=== PATIENT | male | born 1965 | race Caucasian/White ===

== ENCOUNTER 2018-05-17 11:27 | Emergency (ER) | payer OTHER ==
[2018-05-17 13:34] VITALS: BP 119/76
[2018-05-17] MEDS ORDERED: Penicillin G Benzathine 2.4MU* 2,400,000 UNITS/4 ML SYR IM ONE (13:59)
--- NOTE | 2018-05-17 14:08 | UC ---
Dental HPI - HPI Summary HPI Summary: recent tooth extraction 2 days ago, woke up yesterday with a small amount od swelling. today the entire right cheek is swollen and painful - History of Current Complaint Chief Complaint: UCDentalProblem Stated Complaint: DENTAL COMPLAINT (TOOTH PULLED RECENTLY) Time Seen by Provider: 05/17/18 13:50 Hx Obtained From: Patient Onset/Duration: Sudden Onset, Lasting Days Severity: Severe Pain Intensity: 8 Related History: Previous Dental Care on Same Tooth, Swelling - Allergies/Home Medications Allergies/Adverse Reactions: Allergies Allergy/AdvReac Type Severity Reaction Status Date / Time MS Bee Venom [Bee Venom] Allergy Swelling Verified 05/17/18 13:25 MS Aspirin [Aspirin] AdvReac GI Upset Verified 05/17/18 13:25 MS Ibuprofen [Ibuprofen] AdvReac GI Upset Verified 05/17/18 13:25 MUSHROOM Allergy GI AND Uncoded 05/17/18 13:25 VOMITING Home Medications: Home Medications [place]- Med To Replace Inv DAILY 05/17/18 [History] PMH/Surg Hx/FS Hx/Imm Hx Previously Healthy: Yes - Surgical History Surgical History: Yes Surgery Procedure, Year, and Place: R KNEE SX X 4, LAST BEING A PARTIAL REPLACEMENT. T&A, RT rotator cuff repair and bicep tendon reattachement. R FOOT SX--05/2013. RIGHT SHOULDER REPEAT. RIGHT ELBOW. RIGHT CARPAL TUNNEL - Family History Known Family History: Positive: Hypertension, Diabetes - Social History Alcohol Use: None Alcohol Amount: ONCE EVERY 6 MONTHS Substance Use Type: None Substance Use Comment - Amount & Last Used: norco Smoking Status (MU): Never Smoked Tobacco Have You Smoked in the Last Year: No Review of Systems Constitutional: Negative Skin: Negative Eyes: Negative ENT: Dental Pain, Sinus Pain/Tenderness Respiratory: Negative Cardiovascular: Negative Gastrointestinal: Negative Genitourinary: Negative Motor: Negative Neurovascular: Negative Musculoskeletal: Negative Neurological: Negative Psychological: Negative Is Patient Immunocompromised?: No All Other Systems Reviewed And Are Negative: Yes Physical Exam Triage Information Reviewed: Yes Appearance: Well-Nourished, Ill-Appearing, Pain Distress Vital Signs: Initial Vital Signs Temp 98.5 F 05/17/18 13:28 Pulse 76 05/17/18 13:28 Resp 18 05/17/18 13:28 BP 119/76 05/17/18 13:28 Pulse Ox 96 05/17/18 13:28 Vital Signs Reviewed: Yes Eye Exam: Normal ENT Exam: Normal Dental Exam: Normal Dental: Positive: Cellulitis @, Cervical Lymphadenopathy, Other: - swelling of the right buccal area, cannot fully open mouth Respiratory Exam: Normal Respiratory: Positive: Chest non-tender, Lungs clear, Normal breath sounds Cardiovascular Exam: Normal Cardiovascular: Positive: RRR, No Murmur, Pulses Normal Abdominal Exam: Normal Abdomen Description: Positive: Nontender, No Organomegaly, Soft Musculoskeletal Exam: Normal Musculoskeletal: Positive: Strength Intact, ROM Intact, No Edema Neurological Exam: Normal Neurological: Positive: Alert Psychological Exam: Normal Skin Exam: Normal Dental Complaint Course/Dx - Course Course Of Treatment: hx obtained, exam performed ,meds reviewed, treated for abscess and pain - Differential Dx/Diagnosis Differential Diagnosis/Dx: Dental Abscess Provider Diagnoses: dental abscess Discharge - Sign-Out/Discharge Documenting (check all that apply): Patient Departure All imaging exams completed and their final reports reviewed: Yes - Discharge Plan Condition: Stable Disposition: HOME Patient Education Materials: Dental Abscess (ED) Referrals: Kayden Valdovinos MD [Primary Care Provider] - Additional Instructions: 1. You have been given a dose of penicillin for infection 2. take the pain meds as ordered. 3. Follow up with the dentist this week 4. Salt water gargles - Billing Disposition and Condition Condition: STABLE Disposition: Home
== END 2018-05-17 14:41 | disposition home or self-care (01) ==
LOC: UCCORT 11:27
DX: K04.7 Periapical abscess without sinus (principal); Z88.6 Allergy status to analgesic agent
CPT/HCPCS: 96372; 99212; G0463; J0561